=== PATIENT | male | born 1940 | race Caucasian/White ===

== ENCOUNTER 2019-06-04 04:16 | Emergency (ER) | payer MEDICARE, OTHER ==
[2019-06-04 04:25] VITALS: BP 167/96; PULSE 66
[2019-06-04] MEDS ORDERED: Lidocaine 1% with EPINEPHrine 1:100,000 20 ML MDV INJECT ONE (05:14)
[2019-06-04] MEDS ORDERED: Diphtheria,Pertussis(Acell),Tetanus Vaccine 0.5 ML Syringe IM ONE (05:35)
--- NOTE | 2019-06-04 05:39 | EDM.PDOC ---
ED HPI GENERAL MEDICAL PROBLEM - General Chief Complaint: Laceration Stated Complaint: FINGER LACERATION Time Seen by Provider: 06/04/19 04:56 Source of Information: Reports: Patient History Limitations: Reports: No Limitations - History of Present Illness INITIAL COMMENTS - FREE TEXT/NARRATIVE: This is a 78-year-old male. He was cutting some raw meat around 1 PM yesterday when he nicked his little finger with the blade and he has an horizontal laceration into the dermis but is not a deep laceration is more like an abrasion. He put a bandage on it right away and seemed to do just fine until he took a shower and took the Band-Aid off and the finger started bleeding. He is on blood thinners because of his heart problems. He denies any other injuries and he is not up-to-date with his tetanus. Left Finger-Little Pain Score (Numeric/FACES): 5 - Related Data Allergies Allergy/AdvReac Type Severity Reaction Status Date / Time niacin Allergy Hives Verified 06/04/19 04:25 venom-honey bee Allergy Swelling Verified 06/04/19 04:25 [bee venom (honey bee)] Home Meds: Home Meds Aspirin [Jonelle Chewable Aspirin] 1 tab PO DAILY 07/10/14 [History] Nitroglycerin [Nitrostat] 1 tab BUCCAL ONCALL PRN 07/10/14 [History] metFORMIN [Glucophage XR] 500 mg PO BID 08/12/14 [History] Rivaroxaban [Xarelto] 20 mg PO DAILY 11/29/14 [History] Losartan [Cozaar] 50 mg PO BID 12/22/15 [History] Oxybutynin 5 mg PO BEDTIME 12/22/15 [History] Simvastatin [Zocor] 40 mg PO BEDTIME 12/22/15 [History] Metoprolol Succinate [Toprol XL] 25 mg PO DAILY 01/09/16 [History] Past Medical History HEENT History: Reports: Impaired Vision Other HEENT History: wear glasses Cardiovascular History: Reports: Afib, CAD, Heart Valve Replacement, High Cholesterol, Hypertension Gastrointestinal History: Reports: PUD Genitourinary History: Reports: Prostate Disorder, Other (See Below) Other Genitourinary History: seen inplant in prostate Endocrine/Metabolic History: Reports: Diabetes, Type II Hematologic History: Reports: Other (See Below) Other Hematologic History: is on blood thinner Oncologic (Cancer) History: Reports: Prostate Dermatologic History: Reports: Other (See Below) Other Dermatologic History: dry skin - Past Surgical History HEENT Surgical History: Reports: Cataract Surgery Cardiovascular Surgical History: Reports: Coronary Artery Bypass, Valve Replacement GI Surgical History: Reports: Appendectomy, Cholecystectomy Male Surgical History: Reports: Other (See Below) Musculoskeletal Surgical History: Reports: Knee Replacement Social & Family History - Family History Family Medical History: Noncontributory - Tobacco Use Smoking Status *Q: Never Smoker Second Hand Smoke Exposure: No - Caffeine Use Caffeine Use: Reports: Coffee - Living Situation & Occupation Living situation: Reports: , with Spouse, with Family Occupation: Retired ED ROS GENERAL - Review of Systems Review Of Systems: See Below Constitutional: Denies: Fever, Chills HEENT: Reports: No Symptoms Respiratory: Reports: No Symptoms Cardiovascular: Denies: Chest Pain Endocrine: Reports: No Symptoms GI/Abdominal: Denies: Abdominal Pain : Reports: No Symptoms Musculoskeletal: Reports: Other (No significant musculoskeletal changes) Skin: Reports: Other (As per HPI) Neurological: Reports: No Symptoms Psychiatric: Reports: No Symptoms Hematologic/Lymphatic: Reports: Easy Bleeding ED EXAM, SKIN/RASH Exam: See Below Exam Limited By: No Limitations General Appearance: Alert, WD/WN, No Apparent Distress Eye Exam: Bilateral Eye: Normal Inspection Ears: Normal External Exam Nose: Normal Inspection Throat/Mouth: Normal Lips, Normal Voice, No Airway Compromise Head: Normocephalic Neck: Supple Respiratory/Chest: No Respiratory Distress Back Exam: Full Range of Motion Extremities: Normal Inspection, Normal Range of Motion, Other (In his left little finger he is got a slice abrasion over the dorsal middle phalanx, it is about 3 x 3 mm in size, is continually oozing he has full range of motion of that digit and no other acute findings) Neurological: Alert, Oriented Psychiatric: Normal Affect, Normal Mood Skin: Warm, Dry ED SKIN PROCEDURES - Additional/Other Procedure(s) Other (Free Text) Procedure(s): I used a suture kit and I thong up 1% lidocaine with epi, I infiltrated around the wound to help stop the bleeding and then I used nitrate sticks cauterize the raw area and I placed clot gauze on top and wrapped it with co-band. There was no bleeding with a nitrate sticks in the quick clot was just a secondary intent to make sure it did not bleed again with the co-band as a slight pressure dressing. The tip of the finger had good capillary refill after the dressing was placed. Course - Vital Signs Last Recorded V/S: Last Vital Signs Temp 97.1 F 06/04/19 04:24 Pulse 66 06/04/19 04:24 Resp 15 06/04/19 04:24 BP 167/96 H 06/04/19 04:24 Pulse Ox 95 06/04/19 04:24 - Orders/Labs/Meds Orders: Active Orders 24 hr Category Date Time Status Vaccines to be Administered [RC] PER UNIT ROUTINE Care 06/04/19 05:35 Active Meds: Medications Discontinued Medications Generic Name Dose Route Start Last Admin Trade Name Brian PRN Reason Stop Dose Admin Diphtheria/Tetanus/Acell Pertussis 0.5 ml 06/04/19 05:35 06/04/19 05:45 Adacel IM 06/04/19 05:36 0.5 ml .ONCE ONE Administration Lidocaine/Epinephrine 20 ml 06/04/19 05:14 06/04/19 05:28 Xylocaine 1% With Epinephrine 1:100,000 INJECT 06/04/19 05:15 20 ml ONETIME ONE Administration - Re-Assessments/Exams Free Text/Narrative Re-Assessment/Exam: 06/04/19 05:54 Watching him here for 20 to 30 minutes the wound has not bled through the quick clot gauze. I loosened up the co-band some and then rewrapped it lightly to hold the quick clot in place. I explained to him to leave it on for 24 hours once he takes it off he needs to soak it not just pull it off and then keep a Band-Aid over it until it develops a good scab. Departure - Departure Time of Disposition: 05:54 Disposition: Home, Self-Care 01 Condition: Good Clinical Impression: Abrasion of left little finger, initial encounter, Bleeding, Hx of intermediate use of blood thinners - Discharge Information *PRESCRIPTION DRUG MONITORING PROGRAM REVIEWED*: Not Applicable *COPY OF PRESCRIPTION DRUG MONITORING REPORT IN PATIENT LUCIANO: Not Applicable Instructions: Bleeding Precautions When on Anticoagulant Therapy, Adult Referrals: Ahsan Galeano MD [Primary Care Provider] - Forms: ED Department Discharge Additional Instructions: Leave the dressing on your little finger for 24 hours, when you take it off make sure you soaked that quick clot gauze first and do not just pull it off because it will start bleeding again, once that quick clot gauze is off keep the wound covered with a Band-Aid so you do not disturb the scab, follow-up with your doctor as needed or come to the ER as needed Sepsis Event Note - Evaluation Sepsis Screening Result: No Definite Risk - Focused Exam Vital Signs: Vital Signs Temp Pulse Resp BP Pulse Ox 06/04/19 04:24 97.1 F 66 15 167/96 H 95 Date Exam was Performed: 06/04/19 Time Exam was Performed: 05:54 - My Orders Last 24 Hours: My Active Orders 06/04/19 05:35 Vaccines to be Administered [RC] PER UNIT ROUTINE - Assessment/Plan Last 24 Hours: My Active Orders 06/04/19 05:35 Vaccines to be Administered [RC] PER UNIT ROUTINE
== END 2019-06-04 06:05 | disposition home or self-care (01) ==
LOC: JD.ED 04:16
DX: S61.217A Laceration without foreign body of left little finger without damage to nail, initial encounter (principal); I25.10 Atherosclerotic heart disease of native coronary artery without angina pectoris; I48.91 Unspecified atrial fibrillation; E78.00 Pure hypercholesterolemia, unspecified; E11.9 Type 2 diabetes mellitus without complications; Z91.030 Bee allergy status; Z91.09 Other allergy status, other than to drugs and biological substances; Z79.82 Long term (current) use of aspirin; Z79.84 Long term (current) use of oral hypoglycemic drugs; Z23 Encounter for immunization; Z90.49 Acquired absence of other specified parts of digestive tract; W26.8XXA Contact with other sharp object(s), not elsewhere classified, initial encounter
CPT/HCPCS: 90471; 90715; 99282; 99282-25

== ENCOUNTER 2021-02-21 13:40 | Emergency (ER) | payer MEDICARE, OTHER ==
[2021-02-21 15:29] VITALS: BP 140/96; PULSE 91
--- NOTE | 2021-02-21 16:27 | EDM.PDOC ---
ED HPI GENERAL MEDICAL PROBLEM - General Chief Complaint: Respiratory Problem Stated Complaint: CHEST CONGESTION Time Seen by Provider: 02/21/21 16:06 Source of Information: Reports: Patient, RN Notes Reviewed History Limitations: Reports: No Limitations - History of Present Illness INITIAL COMMENTS - FREE TEXT/NARRATIVE: Patient is an 80-year-old male presenting to the emergency department with complaints of a 3-day history of cough productive of clear sputum, shortness of breath, and mild intermittent right-sided chest discomfort. Patient has a history of congestive heart failure, artificial valves, DC, and A. fib. He reports that a few weeks back he was having problems with fluid retention and fluid in his lungs. He was treated with antibiotics and started on Lasix 20 mg daily. Reports symptoms improved thereafter. He denies any nausea, vomiting, fever, or chills. He was vaccinated for Covid with the Moderna vaccine in June this year. Right Chest Pain Score (Numeric/FACES): 4 - Related Data Allergies Allergy/AdvReac Type Severity Reaction Status Date / Time niacin Allergy Hives Verified 02/21/21 15:29 venom-honey bee Allergy Swelling Verified 02/21/21 15:29 [bee venom (honey bee)] Home Meds: Home Meds Aspirin [Jonelle Chewable Aspirin] 1 tab PO DAILY 07/10/14 [History] Nitroglycerin [Nitrostat] 1 tab BUCCAL ONCALL PRN 07/10/14 [History] metFORMIN [Glucophage XR] 500 mg PO BID 08/12/14 [History] Losartan [Cozaar] 50 mg PO BID 12/22/15 [History] Oxybutynin 5 mg PO BEDTIME 12/22/15 [History] Metoprolol Succinate [Toprol XL] 25 mg PO DAILY 01/09/16 [History] Furosemide 20 mg PO DAILY 02/21/21 [History] Warfarin [Coumadin] 1 tab PO DAILY 02/21/21 [History] Past Medical History HEENT History: Reports: Impaired Vision Other HEENT History: wear glasses Cardiovascular History: Reports: Afib, Bypass, CAD, Heart Failure, Heart Valve Replacement, High Cholesterol, Hypertension Gastrointestinal History: Reports: PUD Genitourinary History: Reports: Prostate Disorder, Other (See Below) Other Genitourinary History: seen inplant in prostate Endocrine/Metabolic History: Reports: Diabetes, Type II Hematologic History: Reports: Other (See Below) Other Hematologic History: is on blood thinner Oncologic (Cancer) History: Reports: Prostate Dermatologic History: Reports: Other (See Below) Other Dermatologic History: dry skin - Past Surgical History HEENT Surgical History: Reports: Cataract Surgery Cardiovascular Surgical History: Reports: Coronary Artery Bypass, Valve Replacement Other Cardiovascular Surgeries/Procedures: open heart surgery 12/11/15 in [place] GI Surgical History: Reports: Appendectomy, Cholecystectomy Musculoskeletal Surgical History: Reports: Knee Replacement Other Musculoskeletal Surgeries/Procedures:: bilatral knee replacement Social & Family History - Family History Family Medical History: No Pertinent Family History - Tobacco Use Tobacco Use Status *Q: Former Tobacco User Used Tobacco, but Quit: Yes Month/Year Tobacco Last Used: 05/1989 - Caffeine Use Caffeine Use: Reports: Coffee - Recreational Drug Use Recreational Drug Use: No - Living Situation & Occupation Living situation: Reports: , with Spouse, with Family Occupation: Retired ED ROS GENERAL - Review of Systems Review Of Systems: See Below Constitutional: Reports: No Symptoms. Denies: Fever, Chills, Weakness HEENT: Reports: No Symptoms Respiratory: Reports: Shortness of Breath, Pleuritic Chest Pain, Cough, Sputum Cardiovascular: Reports: Chest Pain, Dyspnea on Exertion. Denies: Edema, Lightheadedness, Palpitations, Syncope Endocrine: Reports: No Symptoms GI/Abdominal: Reports: No Symptoms. Denies: Abdominal Pain, Diarrhea, Nausea, Vomiting : Reports: No Symptoms Musculoskeletal: Reports: No Symptoms Skin: Reports: No Symptoms Neurological: Reports: No Symptoms Psychiatric: Reports: No Symptoms Hematologic/Lymphatic: Reports: No Symptoms Immunologic: Reports: No Symptoms ED EXAM, GENERAL - Physical Exam Exam: See Below Exam Limited By: No Limitations General Appearance: Alert, WD/WN, No Apparent Distress Respiratory/Chest: No Respiratory Distress, Lungs Clear, Normal Breath Sounds, No Accessory Muscle Use, Chest Non-Tender Cardiovascular: Normal Peripheral Pulses, Regular Rate, Rhythm, No Edema, No Gallop, No JVD, No Murmur, No Rub GI/Abdominal: Normal Bowel Sounds, Soft, Non-Tender, No Organomegaly, No Distention, No Abnormal Bruit, No Mass Extremities: Normal Inspection, Normal Range of Motion, Non-Tender, Normal Capillary Refill, No Pedal Edema Neurological: Alert, Oriented, CN II-XII Intact, Normal Cognition, Normal Gait, Normal Reflexes, No Motor/Sensory Deficits Psychiatric: Normal Affect, Normal Mood Skin Exam: Warm, Dry, Intact, Normal Color, No Rash #1 Interpretation EKG Date: 02/21/21 Time: 16:21 Rhythm: A-Flutter Rate (Beats/Min): 90 Ethel: Normal P-Wave: Absent QRS: LBBB ST-T: Normal QT: Normal Course - Vital Signs Last Recorded V/S: Last Vital Signs Temp 98.3 F 02/21/21 15:25 Pulse 91 02/21/21 15:25 Resp 16 02/21/21 15:25 BP 140/96 H 02/21/21 15:25 Pulse Ox 95 02/21/21 15:25 - Orders/Labs/Meds Labs: Laboratory Tests 02/21/21 02/21/21 02/21/21 Range/Units 16:20 16:20 16:20 WBC 5.87 (4.23-9.07) K/mm3 RBC 4.59 L (4.63-6.08) M/mm3 Hgb 13.6 L D (13.7-17.5) gm/dl Hct 42.7 (40.1-51.0) % MCV 93.0 H D (79.0-92.2) fl MCH 29.6 (25.7-32.2) pg MCHC 31.9 L (32.2-35.5) g/dl RDW Std Deviation 45.4 H (35.1-43.9) fL Plt Count 214 (163-337) K/mm3 MPV 9.5 (9.4-12.3) fl Neut % (Auto) 72.1 H (34.0-67.9) % Lymph % (Auto) 14.1 L (21.8-53.1) % [place] % (Auto) 11.8 (5.3-12.2) % Eos % (Auto) 1.5 (0.8-7.0) Baso % (Auto) 0.5 (0.1-1.2) % Neut # (Auto) 4.23 (1.78-5.38) K/mm3 Lymph # (Auto) 0.83 L (1.32-3.57) K/mm3 [place] # (Auto) 0.69 (0.30-0.82) K/mm3 Eos # (Auto) 0.09 (0.04-0.54) K/mm3 Baso # (Auto) 0.03 (0.01-0.08) K/mm3 Sodium 143 (136-145) mEq/L Potassium 3.9 (3.5-5.1) mEq/L Chloride 107 (98-107) mEq/L Carbon Dioxide 28 (21-32) mEq/L Anion Gap 11.9 (5-15) BUN 24 H (7-18) mg/dL Creatinine 1.1 (0.7-1.3) mg/dL Est Cr Clr Drug Dosing 56.09 mL/min Estimated GFR (MDRD) > 60 (>60) mL/min BUN/Creatinine Ratio 21.8 H (14-18) Glucose 143 H (70-99) mg/dL Calcium 8.9 (8.5-10.1) mg/dL Total Bilirubin 0.7 (0.2-1.0) mg/dL AST 18 (15-37) U/L ALT 14 L (16-63) U/L Alkaline Phosphatase 58 (46-116) U/L Troponin I 0.017 (0.00-0.056) ng/mL C-Reactive Protein <0.2 (<1.0) mg/dL NT-Pro-B Natriuret Pep (0-450) pg/mL Total Protein 7.2 (6.4-8.2) g/dl Albumin 3.7 (3.4-5.0) g/dl Globulin 3.5 gm/dL Albumin/Globulin Ratio 1.1 (1-2) SARS-CoV-2 RNA (TREY) Negative (NEGATIVE) 02/21/21 Range/Units 16:20 WBC (4.23-9.07) K/mm3 RBC (4.63-6.08) M/mm3 Hgb (13.7-17.5) gm/dl Hct (40.1-51.0) % MCV (79.0-92.2) fl MCH (25.7-32.2) pg MCHC (32.2-35.5) g/dl RDW Std Deviation (35.1-43.9) fL Plt Count (163-337) K/mm3 MPV (9.4-12.3) fl Neut % (Auto) (34.0-67.9) % Lymph % (Auto) (21.8-53.1) % [place] % (Auto) (5.3-12.2) % Eos % (Auto) (0.8-7.0) Baso % (Auto) (0.1-1.2) % Neut # (Auto) (1.78-5.38) K/mm3 Lymph # (Auto) (1.32-3.57) K/mm3 [place] # (Auto) (0.30-0.82) K/mm3 Eos # (Auto) (0.04-0.54) K/mm3 Baso # (Auto) (0.01-0.08) K/mm3 Sodium (136-145) mEq/L Potassium (3.5-5.1) mEq/L Chloride (98-107) mEq/L Carbon Dioxide (21-32) mEq/L Anion Gap (5-15) BUN (7-18) mg/dL Creatinine (0.7-1.3) mg/dL Est Cr Clr Drug Dosing mL/min Estimated GFR (MDRD) (>60) mL/min BUN/Creatinine Ratio (14-18) Glucose (70-99) mg/dL Calcium (8.5-10.1) mg/dL Total Bilirubin (0.2-1.0) mg/dL AST (15-37) U/L ALT (16-63) U/L Alkaline Phosphatase (46-116) U/L Troponin I (0.00-0.056) ng/mL C-Reactive Protein (<1.0) mg/dL NT-Pro-B Natriuret Pep 2645 H (0-450) pg/mL Total Protein (6.4-8.2) g/dl Albumin (3.4-5.0) g/dl Globulin gm/dL Albumin/Globulin Ratio (1-2) SARS-CoV-2 RNA (TREY) (NEGATIVE) - Re-Assessments/Exams Free Text/Narrative Re-Assessment/Exam: 02/21/21 17:48 Hematology is significant for proBNP elevated at 2645. Otherwise unremarkable. Chest x-ray shows evidence of prior CABG but no acute abnormalities. There is no evidence of pulmonary vascular congestion. Lung sounds are clear to auscultation. EKG shows atrial flutter with no evidence of ischemia. Discussed with patient that he is likely suffering from viral illness. Discussed symptomatic treatment as well as return precautions. Discharge instructions as documented. Departure - Departure Time of Disposition: 17:48 Disposition: Home, Self-Care 01 Condition: Good Clinical Impression: Viral illness - Discharge Information *PRESCRIPTION DRUG MONITORING PROGRAM REVIEWED*: No *COPY OF PRESCRIPTION DRUG MONITORING REPORT IN PATIENT LUCIANO: No Instructions: Viral Illness, Adult Referrals: Ahsan Galeano MD [Primary Care Provider] - Forms: ED Department Discharge Additional Instructions: You were seen in the emergency department today for productive cough, shortness of breath, and right-sided chest discomfort. Work-up included blood work, chest x-ray, Covid testing and EKG of your heart. Your work-up was found to be normal. Covid test was negative. Chest x-ray showed clear lungs. You are likely suffering from viral illness. Recommend that you go home and rest. Ensure you are taking an adequate amount of fluid. Follow-up with your primary care provider as scheduled next week. If you experience any worsening symptoms, please do not hesitate to return to the emergency department for reevaluation. Sepsis Event Note (ED) - Focused Exam Vital Signs: Vital Signs Temp Pulse Resp BP Pulse Ox 02/21/21 15:25 98.3 F 91 16 140/96 H 95
--- NOTE | 2021-02-21 16:40 | CR ---
Chest: Portable view of the chest was obtained. Comparison: Prior chest x-ray of 12/21/15. Heart is enlarged. Small nodule is noted within the right mid to lower lung which is stable. Lungs show no acute parenchymal change. Sternotomy wires are noted. Prior CABG is seen. Bony structure shows nothing acute. Impression: 1. Cardiomegaly with prior CABG. 2. Nothing acute is seen on portable chest x-ray. Diagnostic code #2
== END 2021-02-21 17:50 | disposition home or self-care (01) ==
LOC: JD.ED 13:40
DX: B34.9 Viral infection, unspecified (principal); I48.91 Unspecified atrial fibrillation; I25.10 Atherosclerotic heart disease of native coronary artery without angina pectoris; I11.0 Hypertensive heart disease with heart failure; I50.9 Heart failure, unspecified; E11.9 Type 2 diabetes mellitus without complications; I44.7 Left bundle-branch block, unspecified; Z87.891 Personal history of nicotine dependence; Z88.1 Allergy status to other antibiotic agents; Z91.030 Bee allergy status; Z79.82 Long term (current) use of aspirin; Z79.84 Long term (current) use of oral hypoglycemic drugs; Z79.01 Long term (current) use of anticoagulants; Z79.899 Other long term (current) drug therapy; Z20.822 Contact with and (suspected) exposure to COVID-19
CPT/HCPCS: 36415; 71045; 80053; 83880; 84484; 85025; 86140; 93005; 99285; U0002

== ENCOUNTER 2021-08-26 23:41 | Emergency (ER) | payer MEDICARE, BC ==
[2021-08-26 23:55] VITALS: BP 151/89; PULSE 118
[2021-08-27] MEDS ORDERED: Lidocaine 2% Jelly 10 ML Urojet MUCMEM ONE (00:46)
[2021-08-27] MEDS ORDERED: HYDROmorphone 0.5 MG/0.5 ML Syringe IVPUSH ONE ×2 (01:23→01:53)
[2021-08-27] MEDS ORDERED: Ondansetron 4 MG/2 ML SDV IVPUSH ONE (01:23)
== END 2021-08-27 02:22 ==
LOC: JD.ED 23:41
DX: N13.9 Obstructive and reflux uropathy, unspecified (principal); R31.0 Gross hematuria; E11.9 Type 2 diabetes mellitus without complications; I48.91 Unspecified atrial fibrillation; I25.10 Atherosclerotic heart disease of native coronary artery without angina pectoris; I11.0 Hypertensive heart disease with heart failure; I50.9 Heart failure, unspecified; E78.00 Pure hypercholesterolemia, unspecified; Z87.891 Personal history of nicotine dependence; Z79.84 Long term (current) use of oral hypoglycemic drugs; Z79.01 Long term (current) use of anticoagulants; Z91.030 Bee allergy status; Z91.018 Allergy to other foods
CPT/HCPCS: 36415; 85610; 96374; 96375; 99284; J1170; J2405

== ENCOUNTER 2022-01-18 12:02 | Emergency (ER) | payer MEDICARE, BC ==
[2022-01-18] MEDS ORDERED: HYDROmorphone 0.5 MG/0.5 ML Syringe IVPUSH ONE (12:22)
[2022-01-18] MEDS ORDERED: Sodium Chloride 0.9% 10 ML Syringe FLUSH PRN (12:22)
[2022-01-18] MEDS ORDERED: Metoclopramide 10 MG/2 ML SDV IVPUSH ONE (12:22)
[2022-01-18] MEDS ORDERED: Lidocaine 2% 11 ML Jelly Filled Syringe MUCMEM ONE (12:23)
[2022-01-18 13:47] VITALS: BP 145/79; PULSE 78
== END 2022-01-18 13:42 ==
LOC: JD.ED 12:02
DX: N35.919 Unspecified urethral stricture, male, unspecified site (principal); R33.9 Retention of urine, unspecified; E11.9 Type 2 diabetes mellitus without complications; I10 Essential (primary) hypertension; Z91.030 Bee allergy status; Z88.8 Allergy status to other drugs, medicaments and biological substances; Z79.01 Long term (current) use of anticoagulants; Z79.84 Long term (current) use of oral hypoglycemic drugs; Z79.82 Long term (current) use of aspirin; Z79.899 Other long term (current) drug therapy
CPT/HCPCS: 96374; 96375; 99284; A9270; J1170; J2765; J3490

== ENCOUNTER 2022-06-07 09:17 | Emergency (ER) | payer MEDICARE, BC ==
[2022-06-07] MEDS ORDERED: Sodium Chloride 0.9% 10 ML Syringe FLUSH PRN (09:30)
[2022-06-07] MEDS ORDERED: Sodium Chloride 0.9% 1,000 ML IV SCH (09:30)
[2022-06-07 10:35] LABS: CORONAVIRUS COVID-19 NAA NEGATIVE (NEGATIVE)
[2022-06-07] MEDS ORDERED: Lactated Ringers 1,000 ML IV ONE (12:36)
[2022-06-07 14:32] VITALS: BP 117/54; PULSE 70
== END 2022-06-07 14:32 | disposition home or self-care (01) ==
LOC: JD.ED 09:17
DX: E86.0 Dehydration (principal); I95.9 Hypotension, unspecified; R79.1 Abnormal coagulation profile; M62.81 Muscle weakness (generalized); M25.562 Pain in left knee; I11.0 Hypertensive heart disease with heart failure; I50.9 Heart failure, unspecified; I25.10 Atherosclerotic heart disease of native coronary artery without angina pectoris; E11.9 Type 2 diabetes mellitus without complications; E78.00 Pure hypercholesterolemia, unspecified; Z91.030 Bee allergy status; Z88.8 Allergy status to other drugs, medicaments and biological substances; Z79.82 Long term (current) use of aspirin; Z79.899 Other long term (current) drug therapy; Z79.84 Long term (current) use of oral hypoglycemic drugs; Z79.01 Long term (current) use of anticoagulants; Z86.16 Personal history of COVID-19; Z90.49 Acquired absence of other specified parts of digestive tract; Z20.822 Contact with and (suspected) exposure to COVID-19
CPT/HCPCS: 0241U; 36415; 70450; 71045; 73564; 80053; 82947; 83880; 84484; 85025; 85610; 93005; 96360; 96361; 99285; J3490; J7030; J7120; 93010; 99284

== ENCOUNTER 2022-10-25 16:47 | Emergency (ER) | payer MEDICARE, BC ==
[2022-10-25] MEDS ORDERED: Lidocaine 2% 11 ML Jelly Filled Syringe MUCMEM ONE (17:12)
[2022-10-25] MEDS ORDERED: Lidocaine 2% 11 ML Jelly Filled Syringe ONE (17:14)
[2022-10-25] MEDS ORDERED: Belladonna Alkaloids/Opium 16.2-30 MG Supp RECTAL ONE (18:14)
[2022-10-25 19:16] VITALS: PULSE 70
[2022-10-25 19:17] VITALS: BP 151/96
== END 2022-10-25 19:13 | disposition home or self-care (01) ==
LOC: JD.ED 16:47
DX: T83.091A Other mechanical complication of indwelling urethral catheter, initial encounter (principal); I25.709 Atherosclerosis of coronary artery bypass graft(s), unspecified, with unspecified angina pectoris; I11.0 Hypertensive heart disease with heart failure; I50.9 Heart failure, unspecified; E78.00 Pure hypercholesterolemia, unspecified; E11.9 Type 2 diabetes mellitus without complications; M19.90 Unspecified osteoarthritis, unspecified site; Z86.16 Personal history of COVID-19; Z79.01 Long term (current) use of anticoagulants; Z88.1 Allergy status to other antibiotic agents; Z91.030 Bee allergy status; Z79.82 Long term (current) use of aspirin; Z79.899 Other long term (current) drug therapy; Z79.84 Long term (current) use of oral hypoglycemic drugs
CPT/HCPCS: 99283; A9270

== ENCOUNTER 2022-11-07 13:37 | Emergency (ER) | payer MEDICARE, BC ==
[2022-11-07 16:58] LABS: BASOPHILS ABSOLUTE AUTO 0.03 K/mm3 (0.01-0.08); BASOPHILS PERCENT AUTO 0.6 % (0.1-1.2); EOSINOPHILS ABSOLUTE AUTO 0.47 K/mm3 (0.04-0.54); EOSINOPHILS PERCENT AUTO 8.6 (0.8-7.0); HEMATOCRIT 35.7 % (40.1-51.0); HEMOGLOBIN 11.5 gm/dl (13.7-17.5); LYMPHOCYTES ABSOLUTE AUTO 0.94 K/mm3 (1.32-3.57); LYMPHOCYTES PERCENT AUTO 17.3 % (21.8-53.1); MEAN CORPUSCULAR HEMOGLOBIN 29.2 pg (25.7-32.2); MEAN CORPUSCULAR HGB CONC 32.2 g/dl (32.2-35.5); MEAN CORPUSCULAR VOLUME 90.6 fl (79.0-92.2); MONOCYTES ABSOLUTE AUTO 0.61 K/mm3 (0.30-0.82); MONOCYTES PERCENT AUTO 11.2 % (5.3-12.2); NEUTROPHILS ABSOLUTE AUTO 3.39 K/mm3 (1.78-5.38); NEUTROPHILS PERCENT AUTO 62.3 % (34.0-67.9); PLATELET COUNT,PLT 183 K/mm3 (163-337); RED BLOOD CELL COUNT 3.94 M/mm3 (4.63-6.08); WHITE BLOOD CELL COUNT,WBC 5.44 K/mm3 (4.23-9.07)
[2022-11-07 17:17] LABS: A/G RATIO 0.9 (1-2); ALANINE AMINOTRANSFERASE,ALT 22 U/L (16-63); ALBUMIN 3.8 g/dl (3.4-5.0); ALKALINE PHOSPHATASE 67 U/L (46-116); ANION GAP 13.1 (5-15); ASPARTATE AMNIOTRANSFERASE,AST 25 U/L (15-37); BILIRUBIN TOTAL 0.9 mg/dL (0.2-1.0); BLOOD UREA NITROGEN,BUN 23 mg/dL (7-18); BUN/CREATININE RATIO 16.4 (14-18); CALCIUM 9.3 mg/dL (8.5-10.1); CARBON DIOXIDE,CO2 28 mEq/L (21-32); CHLORIDE,CL 105 mEq/L (98-107); CREATININE 1.4 mg/dL (0.7-1.3); ESTIMATED GFR 50 mL/min (>60); GLUCOSE RANDOM 130 mg/dL (70-99); POTASSIUM,K 4.1 mEq/L (3.5-5.1); PROTEIN TOTAL,TP 7.9 g/dl (6.4-8.2); SODIUM,NA 142 mEq/L (136-145)
[2022-11-07 19:06] VITALS: BP 170/79; PULSE 65
== END 2022-11-07 18:50 | disposition home or self-care (01) ==
LOC: JD.ED 13:37
DX: S70.362A Insect bite (nonvenomous), left thigh, initial encounter (principal); I48.91 Unspecified atrial fibrillation; I25.10 Atherosclerotic heart disease of native coronary artery without angina pectoris; I11.0 Hypertensive heart disease with heart failure; I50.9 Heart failure, unspecified; E78.00 Pure hypercholesterolemia, unspecified; Z95.1 Presence of aortocoronary bypass graft; Z88.1 Allergy status to other antibiotic agents; Z91.030 Bee allergy status; Z79.82 Long term (current) use of aspirin; Z79.84 Long term (current) use of oral hypoglycemic drugs; Z79.899 Other long term (current) drug therapy; Z79.01 Long term (current) use of anticoagulants; Z86.16 Personal history of COVID-19; W57.XXXA Bitten or stung by nonvenomous insect and other nonvenomous arthropods, initial encounter
CPT/HCPCS: 36415; 80053; 85025; 99283